=== PATIENT | female | born 1970 | race Two or more races ===

== ENCOUNTER 2017-12-22 11:40 | Outpatient (CLI) | payer MEDICAID | END 2017-12-22 11:41 | disposition critical access hospital (66) | LOC: EMS 11:40 | PROVIDERS: ATTEND Surgery | DX: R56.9 Unspecified convulsions (principal) | CPT/HCPCS: A0425; A0427 ==

== ENCOUNTER 2017-12-22 12:12 | Emergency (ER) | payer SELFPAY ==
[2017-12-22] MEDS ORDERED: MAG HYDROX/AL HYDROX/SIMETH 30 ML UDC PO STA (12:33)
--- NOTE | 2017-12-22 12:36 | ED Physician Documentation ---
PD HPI SEIZURE - Stated complaint Stated Complaint: seizure activity - Chief complaint Chief Complaint: Neuro - History obtained from History obtained from: Patient, Family, EMS - History of Present Illness Timing - onset: Today (47-year-old otherwise healthy woman with history of gastritis but no history of seizures had flow was reported to be seizure-like activity that started while on the phone. She was upset because she found out her was cheating on her. In contrast to the nurses notes this is never happened before, she has no history of seizures or pseudoseizures when she is upset. The paramedics described him as pseudoseizure like activity, I did not view it. On my evaluation she is sitting up in bed retching and burping without actual vomiting. She is cooperative and follows commands and answers questions.) Review of Systems Ten Systems: 10 systems reviewed and negative Constitutional: denies: Fever, Chills Cardiac: denies: Chest pain / pressure GI: reports: Abdominal Pain (LUQ/epigastric), Nausea. denies: Vomiting, Diarrhea Neurologic: reports: Headache (mild). denies: Head injury PD PAST MEDICAL HISTORY - Past Medical History Past Medical History: Yes GI: GERD : Kidney stones - Past Surgical History Past Surgical History: Yes General: Cholecystectomy /[employer]9 [employer]: section - Present Medications Home Medications: Ambulatory Orders Medication Instructions Recorded Confirmed Omeprazole 12/22/17 - Allergies Allergies/Adverse Reactions: Allergies Allergy/AdvReac Type Severity Reaction Status Date / Time acetaminophen [From Vicodin] AdvReac Intermediate Nausea Verified 02/17/16 23:52 hydrocodone bitartrate * AdvReac Intermediate Nausea Verified 02/17/16 23:52 [From Vicodin] oxycodone HCl * AdvReac Emesis Verified 02/17/16 23:52 [From Percocet] - Social History Does the pt smoke?: No Smoking Status: Never smoker Does the pt drink ETOH?: No Does the pt have substance abuse?: No - Immunizations Immunizations are current?: Yes - POLST Patient has POLST: No PD ED PE NORMAL - Vitals Vital signs reviewed: Yes - General General: Alert and oriented X 3. 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 Eye Opening: Spontaneous Motor: Obeys Commands Verbal: Oriented GCS Score: 15 - Psych Psych: Normal mood, Normal affect Results - Vitals Vitals: Vital Signs - 24 hr 12/22/17 12/22/17 12/22/17 12:13 13:00 14:00 Temperature 36.3 C L Heart Rate 94 99 89 Respiratory 14 23 19 Rate Blood Pressure 109/71 114/73 109/69 O2 Saturation 100 99 95 12/22/17 12/22/17 16:15 17:31 Temperature 36.4 C L Heart Rate 91 98 Respiratory 20 17 Rate Blood Pressure 112/74 102/71 O2 Saturation 95 97 Oxygen O2 Source Room air - EKG (time done) 1245 Rate: Rate (enter#) (108) Rhythm: Sinus tachycardia [place]: Normal Intervals: Normal SD QRS: Normal Ischemia: Normal ST segments Computer interpretation: Agree with computer - Labs Labs: Laboratory Tests 12/22/17 12/22/17 12/22/17 13:00 13:00 13:00 WBC 8.9 RBC 4.36 Hgb 12.5 Hct 37.3 MCV 85.5 MCH 28.7 MCHC 33.5 RDW 15.0 Plt Count 309 MPV 7.4 L Neut # (Auto) 5.5 Lymph # (Auto) 2.7 [place] # (Auto) 0.6 Eos # (Auto) 0.0 Baso # (Auto) 0.0 Absolute Nucleated RBC 0.00 Nucleated RBC % 0.0 Sodium 134 L Potassium 3.6 Chloride 103 Carbon Dioxide 19 L Anion Gap 12.0 BUN 8 Creatinine 0.5 Estimated GFR (MDRD) 133 Glucose 125 H Lactic Acid 3.6 H* Calcium 8.7 Total Bilirubin 0.6 AST 34 ALT 34 Alkaline Phosphatase 69 Total Protein 7.8 Albumin 4.1 Globulin 3.7 Albumin/Globulin Ratio 1.1 Lipase 30 Prolactin Ur Specific [place] Urine HCG, Qual Salicylates < 6.0 Urine Opiates Screen Ur Oxycodone Screen Urine Methadone Screen Ur Propoxyphene Screen Acetaminophen < 10 L Ur Barbiturates Screen Ur Tricyclics Screen Ur Phencyclidine Scrn Ur Amphetamine Screen U Methamphetamines Scrn U Benzodiazepines Scrn Urine Cocaine Screen U Cannabinoids Screen Ethyl Alcohol < 5.0 12/22/17 12/22/17 12/22/17 13:00 13:10 13:10 WBC RBC Hgb Hct MCV MCH MCHC RDW Plt Count MPV Neut # (Auto) Lymph # (Auto) [place] # (Auto) Eos # (Auto) Baso # (Auto) Absolute Nucleated RBC Nucleated RBC % Sodium Potassium Chloride Carbon Dioxide Anion Gap BUN Creatinine Estimated GFR (MDRD) Glucose Lactic Acid Calcium Total Bilirubin AST ALT Alkaline Phosphatase Total Protein Albumin Globulin Albumin/Globulin Ratio Lipase Prolactin 19.88 Ur Specific [place] <=1.005 Urine HCG, Qual NEGATIVE Salicylates Urine Opiates Screen NEGATIVE Ur Oxycodone Screen NEGATIVE Urine Methadone Screen NEGATIVE Ur Propoxyphene Screen NEGATIVE Acetaminophen Ur Barbiturates Screen NEGATIVE Ur Tricyclics Screen NEGATIVE Ur Phencyclidine Scrn NEGATIVE Ur Amphetamine Screen NEGATIVE U Methamphetamines Scrn NEGATIVE U Benzodiazepines Scrn NEGATIVE Urine Cocaine Screen NEGATIVE U Cannabinoids Screen NEGATIVE Ethyl Alcohol 12/22/17 16:12 WBC RBC Hgb Hct MCV MCH MCHC RDW Plt Count MPV Neut # (Auto) Lymph # (Auto) [place] # (Auto) Eos # (Auto) Baso # (Auto) Absolute Nucleated RBC Nucleated RBC % Sodium Potassium Chloride Carbon Dioxide Anion Gap BUN Creatinine Estimated GFR (MDRD) Glucose Lactic Acid 2.2 Calcium Total Bilirubin AST ALT Alkaline Phosphatase Total Protein Albumin Globulin Albumin/Globulin Ratio Lipase Prolactin Ur Specific [place] Urine HCG, Qual Salicylates Urine Opiates Screen Ur Oxycodone Screen Urine Methadone Screen Ur Propoxyphene Screen Acetaminophen Ur Barbiturates Screen Ur Tricyclics Screen Ur Phencyclidine Scrn Ur Amphetamine Screen U Methamphetamines Scrn U Benzodiazepines Scrn Urine Cocaine Screen U Cannabinoids Screen Ethyl Alcohol PD MEDICAL DECISION MAKING - ED course ED course: 47-year-old woman presents by an months with seizure versus pseudoseizure, obviously considered to be seizure until proven otherwise. I was called at bedside at 12:50 PM, she had another episode in the department. She had overt vocal activity during this otherwise tonic-clonic seizure but there were no other features to suggest it was of psychiatric origin, specifically she did not ting her hand from her face and she did have a postictal period. She recovered fully, went over to CT. Of note this first episode that I reviewed, she was getting Ativan right at the time that it started IV. She had another episode similar at 1350 p.m. I was called into the room again and she was violently shaking. She did not have any response to tapping of the glabella nor manipulation of her eyebrows. That said the tonic-clonic activity did not look classic either. [facility] neurology was paged for consultation. Spoke with Jeff Clarke, stonehand neuro at [facility], their VEEG equipment may be down right now and will check, but if it is down she would need to be transferred for VEEG. He will check on that status and call back ([id number]). They did not have video EEG available at [facility]. We called [facility]. Eventually I spoke with Dr. Agee the on-call neurologist there who agreed and will consult and defers to hospitalist team for admission, [id number]. She was accepted by Dr. Sanchez at [facility] at 3:10 PM and cobras were completed. - Sepsis Event Vital Signs: Vital Signs - 24 hr 12/22/17 12/22/17 12/22/17 12:13 13:00 14:00 Temperature 36.3 C L Heart Rate 94 99 89 Respiratory 14 23 19 Rate Blood Pressure 109/71 114/73 109/69 O2 Saturation 100 99 95 12/22/17 12/22/17 16:15 17:31 Temperature 36.4 C L Heart Rate 91 98 Respiratory 20 17 Rate Blood Pressure 112/74 102/71 O2 Saturation 95 97 Oxygen O2 Source Room air Departure - Departure Disposition: 02 Transfer Acute Care Hosp Clinical Impression: Grand mal seizure Condition: Serious Discharge Date/Time: 12/22/17 17:32
[2017-12-22] MEDS ORDERED: LORazepam 2 MG/ML VIAL IVP STA ×2 (12:41→15:10)
[2017-12-22] MEDS ORDERED: ONDANSETRON 4 MG/2 ML VIAL IVP STA (12:41)
[2017-12-22 13:10] LABS: BASOPHILS % (AUTO) 0.5 %; EOSINOPHILS % (AUTO) 0.3 %; HGB - HEMOGLOBIN 12.5 g/dL (12.0-16.0); LYMPHOCYTES # (AUTO) 2.7 10^3/uL (1.5-3.5); MEAN CORPUSCULAR HEMOGLOBIN 28.7 pg (27.0-31.0); MEAN CORPUSCULAR HGB CONC 33.5 g/dL (32.0-36.0); MEAN CORPUSCULAR VOLUME 85.5 fL (81.0-99.0); MEAN PLATELET VOLUME 7.4 fL (7.9-10.8); MONOCYTES # (AUTO) 0.6 10^3/uL (0.0-1.0); MONOCYTES % (AUTO) 7.1 %; NEUTROPHILS # (AUTO) 5.5 10^3/uL (1.5-6.6); NEUTROPHILS % (AUTO) 62.1 %; PLT - PLATELET COUNT 309 10^3/uL (130-450); RED BLOOD COUNT 4.36 10^6/uL (4.20-5.40); WHITE BLOOD COUNT 8.9 x10^3/uL (4.8-10.8)
[2017-12-22] MEDS ORDERED: MORPHINE 2 MG/ML CARPUJECT IVP STA (13:12)
[2017-12-22 13:17] LABS: MUDS CUTOFF CONCENTRATIONS CUTOFF CONC BELOW:
[2017-12-22 13:22] LABS: ACETAMINOPHEN < 10 ug/mL (10-30); ALBUMIN 4.1 g/dL (3.2-5.5); ALBUMIN/GLOBULIN RATIO 1.1 (1.0-2.2); ALKALINE PHOSPHATASE 69 IU/L (42-121); ALT ALANINE AMINOTRANSFERASE 34 IU/L (10-60); AST ASPARTATE AMINOTRANSFERASE 34 IU/L (10-42); BILIRUBIN,TOTAL 0.6 mg/dL (0.2-1.0); BUN - BLOOD UREA NITROGEN 8 mg/dL (6-20); CALCIUM 8.7 mg/dL (8.5-10.3); CARBON DIOXIDE - CO2 19 mmol/L (21-32); CHLORIDE 103 mmol/L (101-111); CREATININE 0.5 mg/dL (0.4-1.0); GFR - MDRD 133 (>89); GLUCOSE 125 mg/dL (70-100); LIPASE 30 U/L (22-51); SALICYLATE < 6.0 mg/dL; SODIUM 134 mmol/L (135-145); TOTAL PROTEIN 7.8 g/dL (6.7-8.2)
[2017-12-22 13:34] LABS: HCG UR QUAL NEGATIVE
[2017-12-22 13:42] LABS: AMPHETAMINE SCREEN,URINE NEGATIVE (NEGATIVE); BENZODIAZEPINES SCREEN, URINE NEGATIVE (NEGATIVE); COCAINE SCREEN URINE NEGATIVE (NEGATIVE); METHADONE SCREEN, URINE NEGATIVE (NEGATIVE); METHAMPHETAMINES SCREEN, URINE NEGATIVE (NEGATIVE); OPIATE SCREEN, URINE NEGATIVE (NEGATIVE); OXYCODONE SCREEN, URINE NEGATIVE (NEGATIVE); PROPOXYPHENE SCREEN, URINE NEGATIVE (NEGATIVE); TRICYCLIC ANTIDEPRESSANT,URINE NEGATIVE (NEGATIVE)
--- NOTE | 2017-12-22 13:58 | CT Report ---
Reason: seizure activity Procedure Date: 12/22/2017 Accession Number: [id number] / [id number] Procedure: CT - Head W/O CPT Code: FULL RESULT: EXAM: CT HEAD EXAM DATE: 12/22/2017 01:33 PM. CLINICAL HISTORY: Seizure activity. COMPARISON: None. TECHNIQUE: Multiaxial CT images were obtained from the foramen magnum to the vertex. Reformats: Sagittal and coronal. IV contrast: None. In accordance with CT protocol optimization, one or more of the following dose reduction techniques were utilized for this exam: automated exposure control, adjustment of mA and/or KV based on patient size, or use of iterative reconstructive technique. FINDINGS: Parenchyma: No intracranial hemorrhage. No evidence of mass, midline shift or CT findings of acute territorial infarction. [place]-white differentiation is distinct. Extraaxial Spaces: No subdural or epidural collections identified. Ventricles: No hydrocephalus Sinuses: Imaged paranasal sinuses, orbits, and mastoids show no significant abnormality. Bones: No evidence of acute fracture or calvarial defect. Other: None. IMPRESSION: No acute intracranial abnormalities. [facility]
[2017-12-22] MEDS ORDERED: ACETAMINOPHEN 1,000 MG/100 ML 100 ML IV STA (15:44)
[2017-12-22] MEDS ORDERED: PROMETHAZINE INJ 25 MG in SODIUM CHLORIDE 0.9% 50 ML IV STA (16:06)
[2017-12-22 17:31] VITALS: BP 102/71
== END 2017-12-22 17:32 | disposition short-term general hospital (02) ==
LOC: ED 12:12
DX: G40.409 Other generalized epilepsy and epileptic syndromes, not intractable, without status epilepticus (principal)
CPT/HCPCS: 36415; 51701; 70450; 80053; 80306; 80307; 80320; 80329; 81025; 83605; 83690; 84146; 85025; 93005; 96365; 96375; 96376; 99285; A9270; J0131; J2060; J7040

== ENCOUNTER 2017-12-22 17:31 | Outpatient (CLI) | payer MEDICAID | END 2017-12-22 17:32 | disposition short-term general hospital (02) | LOC: EMS 17:31 | PROVIDERS: ATTEND Surgery | DX: R56.9 Unspecified convulsions (principal) | CPT/HCPCS: A0170; A0425; A0429 ==

== ENCOUNTER 2018-10-06 08:00 | Outpatient (CLI) | payer MEDICAID ==
[2018-10-06 21:53] LABS: TRICHOMONAS VAGINALIS DNA NEGATIVE (NEGATIVE)
== END 2018-10-06 23:59 | disposition home or self-care (01) ==
LOC: LAB.R 08:00
PROVIDERS: ATTEND Obstetrics & Gynecology
DX: R10.9 Unspecified abdominal pain (principal)
CPT/HCPCS: 87491; 87591; 87661